=== PATIENT | female | born 1985 | race Caucasian/White ===

== ENCOUNTER 2024-03-12 18:47 | Emergency (ER) | payer OTHER ==
[~2024-03-12] VITALS: Ht 157.5 cm; Wt 61.2 kg
[2024-03-12] MEDS ORDERED: ONDANSETRON HCL 4 MG ORAL DISINTEGRATING TAB PO ONE (19:15)
[2024-03-12] MEDS ORDERED: SODIUM CHLORIDE 0.9% 1000ML 1,000 ML IV SCH (19:15)
[2024-03-12] MEDS ORDERED: ONDANSETRON HCL INJ 2MG/ML 2ML 2 MG/ML VIAL IV PRN (19:15)
[2024-03-12] MEDS ORDERED: Morphine 4mg INJECTION 4 MG/ML INJ IV PRN (19:15)
[2024-03-12 19:28] LABS: BASOPHILS # (AUTO) 0.1 (0.0-0.1); BASOPHILS % 0.7 % (0.0-1.0); EOSINOPHILS # (AUTO) 0.1 (0.0-0.4); EOSINOPHILS % 1.2 % (0.0-6.0); HEMATOCRIT 42.1 % (34.2-44.1); HEMOGLOBIN 14.6 g/dL (12.0-16.0); LYMPHOCYTES # (AUTO) 2.6 (1.0-3.2); MEAN CORPUSCULAR HEMOGLOBIN 32.7 pg (28-32); MEAN CORPUSCULAR HGB CONC 34.7 g/dL (31-35); MEAN CORPUSCULAR VOLUME 94.2 fL (81-99); MONOCYTES # (AUTO) 0.8 (0.2-0.8); MONOCYTES % 10.4 % (4.4-11.3); NEUTROPHILS # (AUTO) 4.1 (2.1-6.9); NEUTROPHILS % 53.6 % (38.7-80.0); PLATELET COUNT 234 x10e3/uL (140-360); RED BLOOD COUNT 4.47 x10e6/uL (3.6-5.1); RED CELL DISTRIBUTION WIDTH 12.1 % (11.7-14.4); WHITE BLOOD COUNT 7.58 x10e3/uL (4.8-10.8)
[2024-03-12 19:46] LABS: ALBUMIN 4.1 g/dL (3.5-5.0); ALBUMIN/GLOBULIN RATIO 1.4 (0.8-2.0); ANION GAP 15.7 mmol/L (8-16); BILIRUBIN,TOTAL 0.2 mg/dL (0.2-1.2); CALCIUM 9.6 mg/dL (8.4-10.2); CREATININE, SERUM 0.86 mg/dL (0.57-1.11); POTASSIUM 3.7 mmol/L (3.5-5.1); TOTAL PROTEIN 7.1 g/dL (6.5-8.1)
[2024-03-12 20:03] LABS: BILIRUBIN,URINE NEGATIVE (NEGATIVE); CLARITY,URINE SL CLOUDY (CLEAR); COLOR,URINE YELLOW (YELLOW); GLUCOSE, URINE NEGATIVE (NEGATIVE); KETONES,URINE TRACE (NEGATIVE); LEUKOCYTE ESTERASE ,URINE NEGATIVE (NEGATIVE); NITRITE,URINE NEGATIVE (NEGATIVE); PH,URINE 6 (5 - 7); PROTEIN,URINE DIPSTICK NEGATIVE (NEGATIVE); URINE UROBILINOGEN 0.2 mg/dL (0.2 - 1)
[2024-03-12 20:04] LABS: PREGNANCY TEST, URINE NEGATIVE (NEGATIVE)
[2024-03-12] MEDS ORDERED: SODIUM CHLORIDE 0.9% 1000ML 1,000 ML ONE (20:10)
[2024-03-12] MEDS ORDERED: KETOROLAC TROMETHAMINE 30 MG/ML VIAL ONE (20:10)
[2024-03-12] MEDS ORDERED: ONDANSETRON HCL INJ 2MG/ML 2ML 2 MG/ML VIAL ONE (20:10)
[2024-03-12] MEDS: KETOROLAC TROMETHAMINE 30 MG/ML VIAL IV STA (20:11)
[2024-03-12] MEDS: ONDANSETRON HCL INJ 2MG/ML 2ML 2 MG/ML VIAL IV STA (20:11)
[2024-03-12] MEDS: SODIUM CHLORIDE 0.9% 1000ML 1,000 ML IV STA (20:12)
[2024-03-12 20:15] LABS: BACTERIA,URINE MODERATE /HPF; EPITHELIAL CELLS,URINE FEW /LPF; RBC,URINE 0-5 /HPF (0-5); WBC,URINE (MAN) 0-5 /HPF (0-5)
[2024-03-12] MEDS ORDERED: Morphine 4mg INJECTION 4 MG/ML INJ ONE (21:06)
[2024-03-12] MEDS: Morphine 4mg INJECTION 4 MG/ML INJ IV STA (21:07)
[2024-03-12] MEDS ORDERED: KETOROLAC TROME10 MG PO (21:57)
[2024-03-12] MEDS ORDERED: HYDROCODON-ACE1 EAC9 PO (21:57)
[2024-03-12] MEDS ORDERED: ONDANSETRON ODT4 MG PO (21:57)
[2024-03-12] MEDS ORDERED: FLOMAX0.4 MG PO (21:57)
[2024-03-12 22:18] VITALS: BP 140/99; O2SAT 100
== END 2024-03-12 22:10 | disposition home or self-care (01) ==
LOC: ER 18:51
DX: R10.30 Lower abdominal pain, unspecified (principal); N13.1 Hydronephrosis with ureteral stricture, not elsewhere classified; R11.2 Nausea with vomiting, unspecified; F41.9 Anxiety disorder, unspecified; Z11.52 Encounter for screening for COVID-19
CPT/HCPCS: 36415; 74176; 80053; 81001; 81025; 83690; 85025; 99284; J1885; J2270; J2405; J7030; U0002